=== PATIENT | female | born 1945 | race Caucasian/White ===

== ENCOUNTER 2017-05-02 20:20 | Inpatient (IN) | payer OTHER ==
[~2017-05-02] VITALS: Ht 157.5 cm; Wt 63.9 kg
[~2017-05-02 20:20] MED LIST: ACTONEL35 MG PO; ALENDRONATE SOD35 MG PO; ALLOPURINOL100 MG PO; CALCIUM ACETAT667 MG PO; CENTRUM SILVER1 EAC3 PO; FUROSEMIDE40 MG PO; GLIPIZIDE5 MG PO; HYDROCHLOROTHIA25 MG PO; LABETALOL HCL200 MG PO; LISINOPRIL10 MG PO; PLAVIX75 MG PO; ST. JOSEPH ASPI81 MG PO; SYNTHROID125 MCG PO; TRADJENTA5 MG PO; ZOCOR40 MG PO
[2017-05-02 20:46] LABS: HEMATOCRIT 36.6 % (36.0-46.0); MCH 29.2 PG (29.0-34.0); MCHC 32.8 G/DL (30.0-36.0); MCV 89.1 FL (83-99); PLATELET COUNT 215 K/uL (156-360); RBC DIS.WIDTH-CV 14.5 % (11.8-14.6); RBC DIS.WIDTH-SD 46.8 % (39-53); RED BLOOD COUNT 4.11 M/uL (3.80-5.20)
[2017-05-02 20:59] LABS: CHLORIDE 101 mEq/L (99-109); POTASSIUM 4.3 mEq/L (3.7-5.4); SODIUM 141 mEq/L (136-147)
[2017-05-02 21:01] LABS: GLUCOSE 303 mg/dL (70-99)
[2017-05-02 21:05] LABS: CREATININE 3.3 mg/dL (0.6-1.3); GFR ESTIMATE (CALCULATED) 15 mL/min/
[2017-05-02 21:06] LABS: UREA NITROGEN (BUN) 50 mg/dL (9-23)
[2017-05-02 21:07] LABS: TROP-I INTERPRETATION NEGATIVE; TROPONIN-I 0.04 ng/mL (0.0-0.30)
[2017-05-02 21:16] LABS: BASE EXCESS 3.7 mEq/L (-3 to +3); BICARBONATE 28.5 mEq/L (22-26); CARBOXY HGB 1.2 % (0-5); METHEMOGLOBIN 0.8 % (0-1.5); PCO2 43 mm Hg (35-45); PO2 140 mm Hg (80-100); pH 7.43 (7.35-7.45)
[2017-05-02 21:17] LABS: CONTINUOUS POS AIRWAY PRESSURE 6 cm H2O; DEVICE MASK VENT; FI02 40 %; MODE SPONT; PRES. SUPPORT 14 CM/H2O; SITE LR; TOTAL RESP RATE 23 resp/min
[2017-05-02] MEDS ORDERED: FUROSEMIDE20 MG PO (22:23)
[2017-05-02] MEDS ORDERED: AMARYL2 MG PO (22:23)
[2017-05-02] MEDS ORDERED: CALCITRIOL0.25 MCG PO (22:24)
[2017-05-02] MEDS ORDERED: ZOFRAN ODT4 MG PO (22:24)
[2017-05-02] MEDS ORDERED: ALLOPURINOL100 MG PO (22:25)
[2017-05-02] MEDS ORDERED: OS-CAL 500+D T1 EAC1 PO (22:25)
[2017-05-02] MEDS ORDERED: CARVEDILOL12.5 MG PO (22:25)
[2017-05-03] VITALS (8 sets, daily range): BP systolic 128–179; BP diastolic 63–76
[2017-05-03 02:47] LABS: HEMATOCRIT 31.9 % (36.0-46.0); HEMOGLOBIN 10.6 G/DL (11.9-15.5); MCH 29.4 PG (29.0-34.0); MCHC 33.2 G/DL (30.0-36.0); MCV 88.6 FL (83-99); PLATELET COUNT 208 K/uL (156-360); RBC DIS.WIDTH-CV 14.4 % (11.8-14.6); RBC DIS.WIDTH-SD 46.6 % (39-53); WHITE BLOOD COUNT 9.7 K/uL (4.1-10.2)
[2017-05-03 03:07] LABS: TROP-I INTERPRETATION NEGATIVE; TROPONIN-I 0.18 ng/mL (0.0-0.30)
[2017-05-03 09:53] LABS: CHLORIDE 99 MEQ/L (99-109); CREATININE 3.8 MG/DL (0.6-1.3); GFR ESTIMATE (CALCULATED) 12 mL/min/; GLUCOSE 198 mg/dL (70-99); SODIUM 141 MEQ/L (136-147); TROP-I INTERPRETATION NEGATIVE; TROPONIN-I 0.19 ng/mL (0.0-0.30); UREA NITROGEN (BUN) 53 mg/dL (9-23)
[2017-05-03 18:26] LABS: APPEARANCE SL.HAZY ((CLEAR)); BILIRUBIN NEGATIVE; BLOOD SMALL; COLOR YELLOW ((YELLOW)); GLUCOSE (STRIP) 50; KETONES NEGATIVE; LEUKOCYTES NEGATIVE; NITRITE NEGATIVE; PROTEIN (STRIP) 100; SPECIFIC GRAVITY 1.008 (1.000-1.030); UROBILINOGEN 0.2 MG/DL (0.2-1.0)
[2017-05-03 18:29] LABS: BACTERIA NONE SEEN /HPF; EPITHELIAL CELLS 1+ /HPF; MUCUS TRACE /LPF; RED BLOOD CELLS 0-5 /HPF (0-5); WHITE BLOOD CELLS 0-5 /HPF (0-5)
[2017-05-03 20:28] LABS: UR CREATININE CONCENTRATION 54.4 MG/DL
[2017-05-04 07:11] LABS: ALBUMIN 3.2 G/DL (3.2-4.8); CHLORIDE 96 MEQ/L (99-109); CREATININE 4.1 MG/DL (0.6-1.3); GFR ESTIMATE (CALCULATED) 11 mL/min/; GLUCOSE 132 mg/dL (70-99); PHOSPHORUS 6.1 mg/dL (2.5-4.9); POTASSIUM 3.2 MEQ/L (3.7-5.4); SODIUM 142 MEQ/L (136-147); UREA NITROGEN (BUN) 55 mg/dL (9-23)
[2017-05-04 07:44] VITALS: BP 170/78
[2017-05-04 11:04] VITALS: BP 148/76
[2017-05-04 15:33] VITALS: BP 191/86
[2017-05-04 20:32] VITALS: BP 168/80
[2017-05-04 23:46] VITALS: BP 154/80
[2017-05-05 06:18] LABS: HEMATOCRIT 33.6 % (36.0-46.0); HEMOGLOBIN 10.7 G/DL (11.9-15.5); MCH 28.8 PG (29.0-34.0); MCHC 31.8 G/DL (30.0-36.0); MCV 90.3 FL (83-99); PLATELET COUNT 196 K/uL (156-360); RBC DIS.WIDTH-CV 14.7 % (11.8-14.6); RBC DIS.WIDTH-SD 48.8 % (39-53); RED BLOOD COUNT 3.72 M/uL (3.80-5.20); WHITE BLOOD COUNT 9.1 K/uL (4.1-10.2)
[2017-05-05 06:45] LABS: ALBUMIN 3.2 G/DL (3.2-4.8); CHLORIDE 97 MEQ/L (99-109); GFR ESTIMATE (CALCULATED) 12 mL/min/; PHOSPHORUS 5.4 mg/dL (2.5-4.9); SODIUM 141 MEQ/L (136-147); UREA NITROGEN (BUN) 52 mg/dL (9-23)
[2017-05-05 06:47] LABS: GLUCOSE 51 mg/dL (70-99); POTASSIUM 3.9 MEQ/L (3.7-5.4)
[2017-05-05 07:33] VITALS: BP 173/77
[2017-05-05 15:24] VITALS: BP 186/72
[2017-05-05 23:52] VITALS: BP 189/97
[2017-05-06 05:58] LABS: HEMATOCRIT 34.4 % (36.0-46.0); HEMOGLOBIN 10.8 G/DL (11.9-15.5); MCH 28.3 PG (29.0-34.0); MCHC 31.4 G/DL (30.0-36.0); MCV 90.1 FL (83-99); PLATELET COUNT 193 K/uL (156-360); RBC DIS.WIDTH-CV 14.6 % (11.8-14.6); RBC DIS.WIDTH-SD 48.4 % (39-53); RED BLOOD COUNT 3.82 M/uL (3.80-5.20); WHITE BLOOD COUNT 7.5 K/uL (4.1-10.2)
[2017-05-06 06:20] LABS: ALBUMIN 3.2 G/DL (3.2-4.8); CHLORIDE 97 MEQ/L (99-109); GFR ESTIMATE (CALCULATED) 12 mL/min/; GLUCOSE 138 mg/dL (70-99); PHOSPHORUS 5.2 mg/dL (2.5-4.9); POTASSIUM 4.5 MEQ/L (3.7-5.4); SODIUM 140 MEQ/L (136-147); UREA NITROGEN (BUN) 56 mg/dL (9-23)
[2017-05-06 07:23] VITALS: BP 185/86
[2017-05-06] MEDS ORDERED: FUROSEMIDE20 MG PO (14:04)
[2017-05-06] MEDS ORDERED: APRESOLINE25 MG PO (14:04)
== END 2017-05-06 15:55 | disposition home health service (06) | DRG 189 ==
LOC: EME → EDBD 20:20 → EME 20:20 → EDOF 23:11 → 5SOUTH 23:11 → ENRESERV 23:15 → EDOF 05-03 00:28 → 5SOUTH 05-03 00:29
PROVIDERS: Emergency Medicine; Hospitalist; Internal Medicine Nephrology; Physician Assistant Medical
DX: J96.01 Acute respiratory failure with hypoxia (principal); I50.23 Acute on chronic systolic (congestive) heart failure; I13.0 Hypertensive heart and chronic kidney disease with heart failure and stage 1 through stage 4 chronic kidney disease, or unspecified chronic kidney disease; N17.9 Acute kidney failure, unspecified; T50.2X5A Adverse effect of carbonic-anhydrase inhibitors, benzothiadiazides and other diuretics, initial encounter; E11.649 Type 2 diabetes mellitus with hypoglycemia without coma; E11.65 Type 2 diabetes mellitus with hyperglycemia; I25.10 Atherosclerotic heart disease of native coronary artery without angina pectoris; I25.5 Ischemic cardiomyopathy; E11.22 Type 2 diabetes mellitus with diabetic chronic kidney disease; N18.4 Chronic kidney disease, stage 4 (severe); E78.5 Hyperlipidemia, unspecified; I27.20 Pulmonary hypertension, unspecified; Z66 Do not resuscitate; Z79.02 Long term (current) use of antithrombotics/antiplatelets; I25.2 Old myocardial infarction; Z95.1 Presence of aortocoronary bypass graft; E03.9 Hypothyroidism, unspecified
CPT/HCPCS: 36600; 71046; 71250; 80048; 80069; 81003; 82570; 82803; 82948; 83735; 83880; 84300; 84484; 84550; 85027; 93005; 93306; 94002; 94799; 99281; 99285; J0295; J1644; J1815; J1940; J2405; J7050